=== PATIENT | male | born 1965 | race Caucasian/White ===

== ENCOUNTER 2020-07-24 18:04 | Inpatient (IN) | payer OTHER, SELFPAY ==
[2020-07-24] VITALS (7 sets, daily range): BP systolic 129–160; BP diastolic 76–105; PULSE 79–95; RESP 16–24; TEMP 36.3–36.8; O2SAT 95–97; BMI 30.3; BMI 29.7; BMI 29.8
--- NOTE | 2020-07-24 18:18 | ED.VIS.GEN ---
History of Present Illness Chief Complaint: Abn Labs Informant: Patient Onset: Today Current Severity: - - No symptoms Narrative: Patient is a 55-year-old male with medical history significant for smoking, hypertension, and heart catheterization with stent in 2006 presents to the emergency department at referral from outpatient stress testing lab. The patient states that in February, he was getting out of his truck. He states that he was getting bent over to lift something. He states he began to have some chest pain. He did have heart attack in the past and states this felt different. He was following up with his primary care and discussed this with him. He was scheduled for an outpatient stress test which was done today. He states is not had chest pain, shortness of breath, exertional dyspnea, nausea, or any other symptoms. He was called after his stress and told that it was abnormal and that he should seek care. 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 He states he used to follow with someone in [place], but has not seen them in years. He has been compliant with his medical therapy. Prior similar symptoms: No Recent Illness/Hospitalization: No Past Medical History - Allergies and Home Meds Allergies/Adverse Reactions: Allergies No Known Allergies Allergy (Verified 08/19/15 10:16) Primary Care Physician: Care Physician,No Primary [Primary Care Provider] - Prior records reviewed: Yes Past Medical History: - - Hypertension, coronary vascular disease Surgical History: angioplasty Smoking Status: Current every day smoker Review of Systems General: Denies: Chills, Fever, Sweats Eyes: Denies: Visual changes - bilaterally, Diplopia ENT: Denies: Rhinorrhea, Sore throat Cardiovascular: Denies: Chest pain, Palpitations Respiratory: Denies: Dyspnea, Cough, Dyspnea on exertion Gastrointestinal: Denies: Abdominal pain, Nausea, Vomiting, Diarrhea, Melena, Hematochezia Genitourinary: Denies: Dysuria, Hematuria, Frequency Musculoskeletal: Denies: Back pain, Extremity Pain Skin: Denies: Rash, Wounds Neurological: Denies: Headache, Weakness, Numbness Physical Exam Vital Signs/Narrative: Vital Signs Temp Pulse Resp BP Pulse Ox 07/24/20 18:05 97.4 F L 87 18 160/104 H 96 Inital Vital Signs reviewed: Yes General: Well nourished, Well developed, No Acute Distress Head: Normocephalic, Atraumatic Eyes: Perrl, EOMI ENT: Moist mucous membranes, No rhinorrhea Neck: Supple, Nontender Cardiovascular: Regular rate, Regular rhythm, No murmurs Respiratory: No distress, CTA bilaterally, Chest nontender Abdomen: Soft, Nontender, Nondistended, Normal bowel sounds Back: Nontender, Normal Inspection Extremities: Nontender, No edema Skin: Normal color, No rash Neurological: Alert, Oriented x3, Cranial nerves II-XII grossly intact, Normal Strength, Normal Sensation Psychological: Normal affect, Normal Mood Diagnostic/Tx/Re-eval Clinical Impression(s) from Imaging Studies Chest X-Ray 07/24/20 19:20 IMPRESSION: Right paraspinal rounded opacity which may reflect an underlying osteophyte, consider PA and lateral images were further evaluation. Electronically Signed: Michelle Pedroza MD at 19:45 EST Tel , Service support , Abnormal Lab Results 07/24/20 07/24/20 07/24/20 19:15 19:15 19:15 WBC 8.5 RBC 5.17 Hgb 16.3 Hct 48.8 MCV 94.4 H MCH 31.5 MCHC 33.4 RDW Std Deviation 44.2 H RDW Coeff of Gustavo 12.8 Plt Count 240 MPV 9.2 Immature Gran % (Auto) 0.400 Neut % (Auto) 65.9 Lymph % (Auto) 23.5 [place] % (Auto) 8.6 Eos % (Auto) 0.9 Baso % (Auto) 0.7 Absolute Neuts (auto) 5.6 Absolute Lymphs (auto) 1.99 Nucleated RBC % 0 PT 12.8 INR 1.0 APTT 26.7 Sodium 139 Potassium 4.0 Chloride 107 Carbon Dioxide 27.0 Anion Gap 5 BUN 11 Creatinine 0.79 Estim Creat Clear Calc 110.37 Est GFR (MDRD) Af Amer 132 Est GFR (MDRD) Non-Af 109 BUN/Creatinine Ratio 13.9 Glucose 114 H Calcium 9.6 Troponin I 0.033 - Rhythm Strip Rhythm Strip: Sinus Rhythm Rate: 80 Ectopy: None - EKG Initial EKG Interpretation: Sinus Rhythm, No Acute Injury Pattern Prior: No Prior - Medical Decision Making I was able to review the patient's stress test done today. It does demonstrate area concerning for ischemia in the left circumflex distribution. However, the patient has not really had any symptoms. I did spend time discussing his case with Dr. Delong, on-call for cardiology. He did agree that the patient could go either way with either close outpatient follow-up or admission for heart catheterization tomorrow. After long discussion with the patient, he wants to stay for catheterization. I do feel that this is reasonable, especially given his history of heart disease. EKG was obtained. It was sinus rhythm. There was no acute ischemic change that was documented. Metabolic work-up was pursued and was unremarkable. Chest x-ray was obtained. This was reviewed by both myself and the balancing machine set up worker. There was a questionable opacity in the right lung which may be shadowing. The patient has had no cough or shortness of breath. He does have smoking and will likely need to be followed up on. The patient was actually seen in consultation by Dr. Delong in the emergency department. He was started on Plavix. At this point, he will be admitted with plan for cardiac catheterization. Impression 1. Chest pain with history of coronary vascular disease 2. Abnormal stress test ED Disposition - Plan for ED Patient: Referrals: Care Physician,No Primary [Primary Care Provider] -
--- NOTE | 2020-07-24 18:35 | EKG12_ITS ---
Test Reason : DYSRHYTHMIA Blood Pressure : / mmHG Vent. Rate : 086 BPM Atrial Rate : 086 BPM P-R Int : 130 ms QRS Dur : 096 ms QT Int : 374 ms P-R-T Axes : 073 062 041 degrees QTc Int : 447 ms Normal sinus rhythm Normal ECG Confirmed by VANNESA MAYORGA, CARRIE ([id number]), editor in chief MARY DANIELLE ([id number]) on 07/28/2020 9:51:04 AM Referred By: RIVERA Confirmed By:CARRIE GRANADO MD
--- NOTE | 2020-07-24 19:11 | ED.RN ---
pt just returned to room after talking with significant other outside ED.
--- NOTE | 2020-07-24 19:20 | RAD_ITS ---
STUDY: X-RAY CHEST REASON FOR EXAM: Male, 55 years old. Abnormal stress test today and chest pain TECHNIQUE: 2 frontal images of the chest were obtained. COMPARISON: None. FINDINGS: The lungs are clear and expanded. There is no demonstrated pleural abnormality. Normal size heart. Normal mediastinum and boom. Normal visualized pulmonary arteries. Normal visualized aortic arch and descending thoracic aorta. There is a 3.7 cm rounded calcified focus within the mid/lower right paraspinal region. Normal visualized ribs, clavicles, and shoulders. There is no demonstrated abnormality of the visualized soft tissue structures of the upper abdomen. RAD/Chest 1 View (Portable) IMPRESSION: Right paraspinal rounded opacity which may reflect an underlying osteophyte, consider PA and lateral images were further evaluation. Electronically Signed: Michelle Pedroza MD at 19:45 EST Tel , Service support ,
[2020-07-24] MEDS: Aspirin 81 MG TAB.CHEW 324 MG PO (19:21)
[2020-07-24 19:45] LABS: Absolute Lymphocyte Count 1.99 X10^3/uL (0.83-4.51); Absolute Neutrophil Count 5.6 X10^3/uL (2.0-7.7); Basophil# 0.06 X10^3/uL; Basophil% 0.7 % (0-1); Eosinophil# 0.08 X10^3/uL; Eosinophils% 0.9 % (0-5); Hematocrit 48.8 % (40-54); Hemoglobin 16.3 g/dL (13.0-16.5); Lymphocyte # 1.99 X10^3/ul (4.0); Lymphocyte % 23.5 % (19-41); Mean Corp Hgb Conc 33.4 g/dL (32-36); Mean Corpuscular Hgb 31.5 pg (27.0-32.0); Mean Corpuscular Volume 94.4 fL (80-94); Mean Platelet Vol. 9.2 fl (6.2-12.0); Monocyte# 0.73 X10^3/uL; Monocyte% 8.6 % (0-10); NRBC Flagged by Analyzer 0 % (0-5); Neutrophil # 5.57 X10^3/uL (2.7-7.7); Neutrophil % 65.9 % (47-70); Platelet Count 240 K/mm3 (150-450); RBC Distribution Width CV 12.8 % (11.6-14.6); RBC Distribution Width SD 44.2 fl (35.1-43.9); Red Blood Count 5.17 M/mm3 (4.6-6.2); White Blood Count 8.5 K/mm3 (4.4-11.0)
[2020-07-24 19:51] LABS: Prothrombin Time (Protime)PT. 12.8 SECONDS (11.7-14.9)
[2020-07-24 19:52] LABS: Partial Thromboplast Time 26.7 Seconds (24.1-36.2)
[2020-07-24 20:07] LABS: Anion Gap 5 (5-15); BUN 11 mg/dL (7-18); BUN/Creat Ratio 13.9 RATIO (10-20); Calcium,Total 9.6 mg/dL (8.5-10.1); Chloride 107 mmol/L (98-107); Creatinine, Serum 0.79 mg/dL (0.70-1.30); EST Glomerular Filtration Rate 109 mL/min (>60); Est Glom Filt Rate - Afr Amer 132 mL/min (>60); Estimated Creatinine Clearance 110.37 ml/min; Glucose 114 mg/dL (74-106); Sodium Level 139 mmol/L (136-145)
--- NOTE | 2020-07-24 20:09 | CON.PCM_ITS ---
Problem List (1) Abnormal stress test Status: Acute (2) CAD (coronary artery disease) Status: Chronic Qualifiers: Coronary Disease-Associated Artery/Lesion type: [place] artery [place] vs. transplanted heart: [place] heart (3) S/P PTCA (percutaneous transluminal coronary angioplasty) Status: Chronic (4) HLD (hyperlipidemia) Status: Chronic Qualifiers: Hyperlipidemia type: unspecified Qualified Code(s): E78.5 - Hyperlipidemia, unspecified (5) HTN (hypertension) Status: Chronic Reason for Consult Date of Consultation: 07/24/20 History of Present Illness: The patient is a 55 year old white male with a past medical history of CAD, status post ND, status post PCI, hyperlipidemia, hypertension who was referred for evaluation of an abnormal stress test. He states he was previously cared for at [facility]. He notes several years ago he presented with what he referred to as a massive heart attack . He states he was monitored overnight. The following day he underwent diagnostic cardiac catheterization and subsequent PTCA/stents-details unknown. He states he remained in the hospital for a total of 3 days and was released home. He did follow with [facility] cardiology for period of time. However he states he has not been evaluated by founder and chief executive officer now for some time. He was visiting his PCP for his routine checkup. He informed his PCP that approximately February 2020 he experienced some neck discomfort and felt warm . He does not recall any additional symptoms at that time. He states his PCP requested that he undergo an exercise tolerance test/imaging study. This was performed today at [facility] in the way of a pharmacologic rest test. According to the report obtained by the [facility] emergency department staff this was considered abnormal with concerns of stress-induced myocardial ischemia in the LCx distribution. He states he was contacted by his physician and told to report to the nearest emergency department for additional evaluation and care. Thus he presented to [facility]. The present time he states he is resting comfortably. He recalls his neck discomfort and warm sensation. He notes during his test today he may have felt a warm sensation in his neck as well. He does not recall radiation of any further discomforts nor does he recall having any associated nausea, emesis, or diaphoresis. There has been no report of orthopnea or PND or peripheral pitting edema. There is been no near syncope or syncope. He states he has been on medication which have included aspirin, a beta-sonal, an KEYSHA inhibitor, and a statin. He was on clopidogrel/Plavix in the past but it was subsequently discontinued. He does admit that he continues to smoke cigarettes. He states his tells him he is chronically short of breath. [] Past Medical History Allergies/Adverse Reactions: Allergies No Known Allergies Allergy (Verified 08/19/15 10:16) Home Medications: Ambulatory Orders Medication Instructions Recorded Lisinopril [Zestril] 10 mg PO DAILY 08/19/15 Metoprolol Tartrate [Lopressor 25 mg PO DAILY 08/19/15 (Beta Sonal)] Aspirin [Aspirin, Baby] 81 mg PO DAILY@0800 07/24/20 Prilosec 07/24/20 Past Medical History (Chronic Problems): Chronic Problems CAD (coronary artery disease) (Chronic) S/P PTCA (percutaneous transluminal coronary angioplasty) (Chronic) HLD (hyperlipidemia) (Chronic) HTN (hypertension) (Chronic) Surgical History: angioplasty Lives: Spouse/ Significant Other Smoking Status: Current every day smoker Alcohol: None Drugs: None Review of Systems - Review of Systems General: Denies: Fever, Night Sweats, Fatigue Cardiovascular: Reports: Chest Discomfort, Shortness of Breath. Denies: Orthopnea, PND, Peripheral Edema, Palpitations, Lightheadedness, Dizziness, Near Syncope, Syncope Respiratory: Reports: Shortness of Breath. Denies: Cough, Sputum Production, Hemoptysis Gastrointestinal: Denies: Hematemesis, Hematochezia, Melena Genitourinary: Denies: Dysuria, Hematuria Skin: Denies: Rash Subjectve: This is a 55-year-old white male appears to be resting comfortably at the moment in no acute distress. Objective: Vital Signs Temp Pulse Resp BP Pulse Ox 97.4 F L 87 24 H 160/104 H 96 07/24/20 18:05 07/24/20 19:21 07/24/20 19:21 07/24/20 18:07/24/20 19:21 Oxygen Delivery Method Room Air Weight: 211 lb 3.245 oz Body Mass Index (BMI) 30.3 General: Awake, Alert, Oriented x 3, Cooperative, No Acute Distress HEENT: Atraumatic, Normocephalic, PERRL, EOMI, Sclera Non Icteric Neck: Supple, Good ROM, No JVD Lungs: Clear to auscultation Cardiovascular: Regular Rhythm, Normal S1, Normal S2, Positive S4 Vascular: No Carotid Bruits Abdomen: Bowel Sounds Present, Soft, Non Tender Extremities: No edema Neurological: No Focal Motor or Sensory Deficit Psych/Mental Status: Appropriate 07/24/20 19:15: WBC 8.5, RBC 5.17, Hgb 16.3, Hct 48.8, MCV 94.4 H, MCH 31.5, MCHC 33.4, Plt Count 240, MPV 9.2, Immature Gran % (Auto) 0.400, Neut % (Auto) 65.9, Lymph % (Auto) 23.5, [place] % (Auto) 8.6, Eos % (Auto) 0.9, Baso % (Auto) 0.7, Absolute Neuts (auto) 5.6, Nucleated RBC % 0 07/24/20 19:15: PT 12.8, INR 1.0, APTT 26.7 07/24/20 19:15: Sodium 139, Potassium 4.0, Chloride 107, Carbon Dioxide 27.0, Anion Gap 5, BUN 11, Creatinine 0.79, Est GFR (MDRD) Af Amer 132, Est GFR (MDRD) Non-Af 109, BUN/Creatinine Ratio 13.9, Glucose 114 H, Calcium 9.6, Troponin I 0.033 Rhythm: Sinus rhythm EKG: Sinus rhythm CXR: Preliminary evaluation: No acute cardiopulmonary disease process appreciate d: Please see official report Assessment/Plan 1. Abnormal stress test The patient was contacted with an abnormal stress test and asked to report to the nearest hospital for further evaluation. His stress test has raised concerns of underlying progression of CAD and myocardial ischemia. At the moment patient appears to be resting comfortably. He has elected to remain in the hospital for further cardiovascular evaluation. He is having laboratory studies performed. He has had an ECG performed. He has had a chest x-ray performed. He will continue medical management as deemed appropriate. A discussion was held with him with respect to further evaluation with diagnostic cardiac catheterization. The procedure and risks were discussed with him. He was agreeable to this approach. 2. CAD status post PCI The details of the patient's CAD/PCI are unknown at this time. At the moment he will continue to be monitored. He will continue medical therapy. He will be continuing plans for further evaluation with diagnostic cardiac catheterization. In the interim attempt will be made to obtain his cardiovascular records from [facility]. 3. Hyperlipidemia His lipids can be checked. He will continue lipid-lowering therapy. 4. Hypertension He should continue medical therapy as deemed appropriate. Comment: The patient's case has been discussed with the patient and Dr. Sutherland of the [facility] emergency department staff. This note was generated using a voice recognition system and there may be incorrect words, spelling or punctuation that were not noted when reviewing the office note prior to saving.
--- NOTE | 2020-07-24 20:48 | PCM.HP.STD ---
Problem List (1) Abnormal stress test Status: Acute (2) CAD (coronary artery disease) Status: Chronic Qualifiers: Coronary Disease-Associated Artery/Lesion type: [place] artery [place] vs. transplanted heart: [place] heart (3) HLD (hyperlipidemia) Status: Chronic Qualifiers: Hyperlipidemia type: unspecified Qualified Code(s): E78.5 - Hyperlipidemia, unspecified (4) HTN (hypertension) Status: Chronic Qualifiers: Hypertension type: essential hypertension Qualified Code(s): I10 - Essential (primary) hypertension History of Present Illness Date of Admission: 07/24/20 Chief Complaint: Chest pain, abnormal stress test The patient is a 55 year old M with past medical history of CAD status post stent in 2006, who had followed up with his primary care doctor in February 2020 and had complained of some chest pain. At that time, he had a substernal/upper sternum chest discomfort associated with sweatiness, diaphoresis, dizziness. This lasted for about 10 minutes. He had a recurrence of those symptoms around [place] was working. This also lasted for a few minutes. Patient had followed up for a stress test which was done today in the [facility]. The findings were a basal to mid lateral wall hypokinesis, suggestive of ischemia in the left circumflex territory. He was called with results of the abnormal stress test and told to see a tie inspector. His previous tie inspector was in [place] but had moved. He lives close by and decided to get his care in [facility]. Patient continues to smoke. His vitals in the ED showed temperature of 97.4F, heart rate 87, blood pressure 160/104, respiratory rate was 18, SPO2 is 96% on room air. Patient admits to taking all his medications today. His admitting blood work was unremarkable. His admitting chest x-ray was unremarkable. Past Medical History Past Medical History (Chronic Problems): Chronic Problems CAD (coronary artery disease) (Chronic) S/P PTCA (percutaneous transluminal coronary angioplasty) (Chronic) HLD (hyperlipidemia) (Chronic) HTN (hypertension) (Chronic) Allergies No Known Allergies Allergy (Verified 08/19/15 10:16) Home Medications: Ambulatory Orders Medication Instructions Recorded Lisinopril [Zestril] 5 mg PO DAILY 08/19/15 Metoprolol Tartrate [Lopressor 25 mg PO DAILY 08/19/15 (Beta Sonal)] Aspirin [Aspirin, Baby] 81 mg PO DAILY@0800 07/24/20 Betamethasone/Propylene Glyc 15 mg TOPICAL PRN PRN 07/24/20 [Betamethasone Dp Aug 0.05% Oin] Prilosec 10 mg PO DAILY 07/24/20 Rosuvastatin Calcium 20 mg PO DAILY 07/24/20 Surgical History: angioplasty, - - Status post removal from his knee, wisdom teeth removal Lives: Spouse/ Significant Other Smoking Status: Current every day smoker Alcohol: Heavy - Drinks about 8 beers a day or one half bottles of wine a day Drugs: None Review of Systems Constitutional: Denies: Anorexia, Chills, Fever, Malaise, Weakness, Weight Change Eyes: Denies: Blurred vision, Cataracts, Conjunctivae Inflammation, Pain, Redness HEENT: Denies: Difficulty Hearing, Difficulty Swallowing, Head Aches, Hearing Changes, Sinus Congestion, Sinus Drainage Cardiovascular: Reports: Chest Pain, Chest Pressure, Chest Tightness. Denies: Orthopnea, Palpitations, Paroxysmal Noc. Dyspnea Respiratory: Denies: Cough, Hemoptysis, Shortness of breath at rest, Shortness of breath upon exertion, Sputum production Gastrointestinal: Denies: Abdominal Pain, Hematemesis, Hematochezia, Nausea, Vomiting Genitourinary: Denies: Dysuria, Frequency, Incontinence Musculoskeletal: Denies: Joint Pain, Joint stiffness, Joint swelling, Joint Tenderness Skin: Denies: Pruritis, Rash, Wounds Neurological: Denies: Difficulty swallowing, Focal weakness, Numbness, Tingling Psychiatric: Denies: Anxiety, Depression, Homicidal Ideations, Suicidal Ideations Hematologic/ Lymphatic: Denies: Easy Bruising, Easy Bleeding VTE Information - Inpt Only VTE Present on Admission: No VTE Pharm Prophylaxis ordered?: Yes Patient Problems: Active and Suspected Problems Abnormal stress test (Acute) - Physical Exam Vitals/I&O's: Vital Signs Temp Pulse Resp BP Pulse Ox 97.4 F L 87 24 H 160/104 H 96 07/24/20 18:05 07/24/20 19:21 07/24/20 19:21 07/24/20 18:05 07/24/20 19:21 Oxygen Delivery Method Room Air Weight: 95.8 kg Body Mass Index (BMI) 30.3 General: Alert, Oriented x3, Cooperative, No apparent distress HEENT: Atraumatic, PERRLA, EOMI, Normocephalic Oral: Moist Mucosa Neck: Supple Lungs: Clear to auscultation, Normal air movement Cardiovascular: Regular rate, Regular Rhythm, Normal S1, Normal S2, No murmurs Abdomen: Bowel Sounds Present, Soft, Non Tender, Non-Distended, No Hepato-splenomegaly Extremities: No edema Skin: No rashes Musculoskeletal: No Tenderness to Palpation of Joints or Extremities Lymphatic: No Cervical, Supraclavicular, or Inguinal Adenopathy Neurological: Cranial nerves II-XII grossly intact, Neuro grossly intact Psych/Mental Status: Normal Affect, Appropriate Laboratory Results 07/24/20 19:15: WBC 8.5, RBC 5.17, Hgb 16.3, Hct 48.8, MCV 94.4 H, MCH 31.5, MCHC 33.4, RDW Std Deviation 44.2 H, RDW Coeff of Gustavo 12.8, Plt Count 240, MPV 9.2, Immature Gran % (Auto) 0.400, Neut % (Auto) 65.9, Lymph % (Auto) 23.5, [place] % (Auto) 8.6, Eos % (Auto) 0.9, Baso % (Auto) 0.7, Absolute Neuts (auto) 5.6, Absolute Lymphs (auto) 1.99, Nucleated RBC % 0 07/24/20 19:15: PT 12.8, INR 1.0, APTT 26.7 07/24/20 19:15: Sodium 139, Potassium 4.0, Chloride 107, Carbon Dioxide 27.0, Anion Gap 5, BUN 11, Creatinine 0.79, Estim Creat Clear Calc 110.37, Est GFR (MDRD) Af Amer 132, Est GFR (MDRD) Non-Af 109, BUN/Creatinine Ratio 13.9, Glucose 114 H, Calcium 9.6, Troponin I 0.033 Current Medications Clopidogrel Bisulfate (Clopidogrel Bisulfate 75 Mg Tablet) 75 mg PO DAILY [facility] Sodium Chloride () 1,000 mls @ 0 mls/hr IV .Q0M [facility] Assessment/Plan All Active Problems Abnormal stress test (Acute) 1. Chest pain, abnormal stress test in a patient with history of CAD status post stent EKG did not show acute ST-T changes. Troponins are negative. Stress test done today in [place] showed mid lateral wall hypokinesis suggesting ischemia in the left circumflex territory Cardiology consulted from the ED, patient going for cardiac cath in a.m. -patient already loaded with Plavix and aspirin Continue on aspirin, statin, metoprolol Check lipid profile, HgbA1c in a.m. 2. Hypertension, uncontrolled, patient admits to taking all his medications on the day of admission Continue on metoprolol. Hold lisinopril in anticipation of use of contrast during cardiac cath Hydralazine as needed 3. Nicotine dependence, advised to quit, continue replacement 4. Alcohol use disorder, patient denies going into DTs Will monitor on the CIWA withdrawal scale 5. DVT prophylaxis with heparin subcu Inpatient E&M: 18301 Init Hosp L3
[2020-07-24] MEDS: Clopidogrel Bisulfate 300 MG Tablet PO (20:58)
[2020-07-24 22:12] LABS: AST(SGOT) 28 U/L (15-37); Alanine Aminotransfer ALT/SGPT 68 U/L (16-61); Albumin, Serum 4.5 g/dL (3.2-5.0); Alkaline Phosphatase 68 U/L (45-117); Bilirubin, Direct 0.12 mg/dL (0.00-0.30); Globulin 3.7 g/dL (2.2-4.2); Protein, Total 8.2 g/dL (6.4-8.2)
[2020-07-24] MEDS: Heparin Injection (Vial) 5,000 UNIT/ML VIAL 5000 UNIT SC (22:55)
--- NOTE | 2020-07-24 23:59 | PCS.PANDOC ---
PANDEMIC DOCUMENTATION INITIATED: Date: 07/24/20 Time: 21:35
[2020-07-25] VITALS (16 sets, daily range): BP systolic 125–146; BP diastolic 75–93; PULSE 67–91; RESP 16–18; TEMP 36.6–37; O2SAT 93–96
[2020-07-25 00:40] LABS: Hemoglobin A1c 5.9 % (3.8-5.6)
--- NOTE | 2020-07-25 05:55 | EKG12_ITS ---
Test Reason : AM EKG Blood Pressure : / mmHG Vent. Rate : 069 BPM Atrial Rate : 069 BPM P-R Int : 124 ms QRS Dur : 096 ms QT Int : 430 ms P-R-T Axes : 072 055 052 degrees QTc Int : 460 ms Normal sinus rhythm Nonspecific T wave abnormality Prolonged QT Abnormal ECG Confirmed by VANNESA MAYORGA, ACRRIE ([id number]), editor managing director MARY DANIELLE ([id number]) on 07/28/2020 9:54:38 AM Referred By: LEV Confirmed By:CARRIE GRANADO MD
--- NOTE | 2020-07-25 05:55 | ECHOCS_ITS ---
Reason For Study: CAD/ASHD Procedure This was a 2D Doppler, Color Flow transthoracic echocardiogram. Technically difficult study, contrast injection performed. The study was technically difficult. Contrast injection was performed. Exam performed portable in patient room. Left Ventricle Normal LV size. Mild segmental systolic dysfunction (see wall motion). The estimated ejection fraction is 45 %. Transmitral doppler flow suggestive of impaired relaxation of left ventricle. Lateral-Basal: Hypokinetic. Mid-Anterior : Hypokinetic. Mid-Lateral : Hypokinetic. Mid-Posterior: Hypokinetic. Mid-anteroseptal : Hypokinetic. Anterior [place] : Hypokinetic. Lateral [place] : Hypokinetic. Right Ventricle Normal RV size. Normal systolic function. Atria The left atrium is mildly enlarged. Normal right atrium. No doppler evidence for ASD. Mitral Valve There is no mitral annular calcification. Mild focal mitral valve calcification of the anterior leaflet. Trivial mitral valve insufficiency. Tricuspid Valve Normal tricuspid valve. Trivial tricuspid valve insufficiency. Unable to estimate RV systolic pressure/pulmonary artery pressure due to technically difficult study. Aortic Valve Trisinus/trileaflet aortic valve. Normal aortic valve. Pulmonic Valve The pulmonic valve is not well visualized. Great Vessels The aortic root is not well visualized. Pericardium/Pleural No pericardial effusion. Medication Diluted definity 3ml given slow IV push to enhance endocardial definition. MMode/2D Measurements & Calculations LVIDd: 5.4 cm IVSd: 1.4 cm LA dimension: 4.1 cm LVIDs: 3.9 cm LVPWd: 1.2 cm FS: 27.3 % LAV(MOD-bp): 64.3 ml LA A4 area: 20.5 cm2 RA A4 area: 19.2 cm2 LAV(MOD-bp) Indexed: 30.3 ml/m2 LAV(MOD-sp2): 67.2 ml LAV(MOD-sp4): 58.4 ml Time Measurements MV dec time: 0.27 sec Doppler Measurements & Calculations MV E max matthew: 52.5 cm/sec Lat Peak E' Matthew: 10.4 cm/sec Med Peak E' Matthew: 11.7 cm/sec MV A max matthew: 83.8 cm/sec E/E' lat: 5.0 E/E' med: 4.5 MV E/A: 0.63 MV V2 max: 73.3 cm/sec MV P1/2t max matthew: 60.8 cm/sec Ao V2 max: 114.6 cm/sec MV max P.2 mmHg MV P1/2t: 86.4 msec Ao max P.3 mmHg MV V2 mean: 36.7 cm/sec MV dec slope: 206.1 cm/sec2 MV mean P.63 mmHg MV V2 VTI: 22.7 cm MVA(P1/2t): 2.5 cm2 LV V1 max: 99.7 cm/sec PA V2 max: 86.7 cm/sec LV V1 max P.0 mmHg Interpretation Summary The study was technically difficult. Contrast injection was performed. Mild segmental systolic dysfunction (see wall motion). The estimated ejection fraction is 45 %. The left atrium is mildly enlarged. Mild focal mitral valve calcification of the anterior leaflet. Trivial mitral valve insufficiency. Trivial tricuspid valve insufficiency. Unable to estimate RV systolic pressure/pulmonary artery pressure due to technically difficult study. Transmitral doppler flow suggestive of impaired relaxation of left ventricle Ordering Physician: Tony Delong Referring Physician: VIOLET PCP Performed By: Babar Callahan RCS
[2020-07-25] MEDS: Clopidogrel Bisulfate 75 MG Tablet PO (06:26)
[2020-07-25] MEDS: Aspirin 81 MG TAB.CHEW PO (06:26)
[2020-07-25] MEDS: Metoprolol Tartrate 25 MG Tablet PO (06:26)
[2020-07-25 06:35] LABS: Absolute Lymphocyte Count 2.07 X10^3/uL (0.83-4.51); Absolute Neutrophil Count 2.8 X10^3/uL (2.0-7.7); Basophil# 0.06 X10^3/uL; Eosinophil# 0.27 X10^3/uL; Eosinophils% 4.6 % (0-5); Hematocrit 45.8 % (40-54); Hemoglobin 15.1 g/dL (13.0-16.5); Lymphocyte # 2.07 X10^3/ul (4.0); Lymphocyte % 35.6 % (19-41); Mean Corpuscular Hgb 31.1 pg (27.0-32.0); Mean Corpuscular Volume 94.4 fL (80-94); Monocyte# 0.62 X10^3/uL; Monocyte% 10.7 % (0-10); NRBC Flagged by Analyzer 0 % (0-5); Neutrophil # 2.79 X10^3/uL (2.7-7.7); Neutrophil % 47.9 % (47-70); Platelet Count 189 K/mm3 (150-450); RBC Distribution Width CV 12.7 % (11.6-14.6); RBC Distribution Width SD 44.6 fl (35.1-43.9); Red Blood Count 4.85 M/mm3 (4.6-6.2); White Blood Count 5.8 K/mm3 (4.4-11.0)
[2020-07-25 07:11] LABS: AST(SGOT) 23 U/L (15-37); Alanine Aminotransfer ALT/SGPT 59 U/L (16-61); Albumin, Serum 3.9 g/dL (3.2-5.0); Alkaline Phosphatase 62 U/L (45-117); Anion Gap 4 (5-15); BUN 14 mg/dL (7-18); BUN/Creat Ratio 20.7 RATIO (10-20); Bilirubin, Direct 0.15 mg/dL (0.00-0.30); Calcium,Total 9.1 mg/dL (8.5-10.1); Chloride 109 mmol/L (98-107); Cholesterol 215 mg/dL (200); Creatinine, Serum 0.68 mg/dL (0.70-1.30); EST Glomerular Filtration Rate 130 mL/min (>60); Est Glom Filt Rate - Afr Amer 157 mL/min (>60); Estimated Creatinine Clearance 128.23 ml/min; Globulin 3.2 g/dL (2.2-4.2); Glucose 118 mg/dL (74-106); High Density Lipoprotein 44 mg/dL; Potassium 4.1 mmol/L (3.5-5.1); Protein, Total 7.1 g/dL (6.4-8.2); Sodium Level 140 mmol/L (136-145); Triglycerides 191 mg/dL; Very Low Density Lipoprotein 38 mg/dL (5-40)
--- NOTE | 2020-07-25 08:22 | PN.CARD_ITS ---
Subjectve: The patient is awake and alert. He has had no new acute symptoms. Objective: Vital Signs Temp Pulse Resp BP Pulse Ox 97.8 F 91 18 138/79 H 96 07/25/20 06:24 07/25/20 07:19 07/25/20 06:24 07/25/20 06:26 07/25/20 06:24 Oxygen Delivery Method Room Air Weight: 207 lb 3.752 oz Body Mass Index (BMI) 29.7 Intake and Output for Last 24 Hours 07/23/20 07/24/20 07/25/20 23:59 23:59 23:59 Intake Total 240 / 240 0 / 0 Balance 240 / 240 0 / 0 General: Awake, Alert, Oriented x 3, Cooperative, No Acute Distress HEENT: Atraumatic, Normocephalic, PERRL, EOMI, Sclera Non Icteric Neck: Supple, Good ROM, No JVD Lungs: Clear to auscultation Cardiovascular: Regular Rhythm, Normal S1, Normal S2, Positive S4 Vascular: Normal Radial Pulses Abdomen: Bowel Sounds Present, Soft Extremities: No edema Neurological: No Focal Motor or Sensory Deficit Psych/Mental Status: Appropriate 07/24/20 19:15: WBC 8.5, RBC 5.17, Hgb 16.3, Hct 48.8, MCV 94.4 H, MCH 31.5, MCHC 33.4, Plt Count 240, MPV 9.2, Immature Gran % (Auto) 0.400, Neut % (Auto) 65.9, Lymph % (Auto) 23.5, [place] % (Auto) 8.6, Eos % (Auto) 0.9, Baso % (Auto) 0.7, Absolute Neuts (auto) 5.6, Nucleated RBC % 0 07/24/20 19:15: PT 12.8, INR 1.0, APTT 26.7 07/24/20 19:15: Sodium 139, Potassium 4.0, Chloride 107, Carbon Dioxide 27.0, Anion Gap 5, BUN 11, Creatinine 0.79, Est GFR (MDRD) Af Amer 132, Est GFR (MDRD) Non-Af 109, BUN/Creatinine Ratio 13.9, Glucose 114 H, Calcium 9.6, Troponin I 0.033 07/24/20 19:15: Total Bilirubin 0.50, Direct Bilirubin 0.12 07/24/20 19:15: Hemoglobin A1c 5.9 H 07/25/20 00:44: Troponin I 0.032 07/25/20 03:40: Troponin I 0.016 07/25/20 06:25: Sodium 140, Potassium 4.1, Chloride 109 H, Carbon Dioxide 27.0, Anion Gap 4 L, BUN 14, Creatinine 0.68 L, Est GFR (MDRD) Af Amer 157, Est GFR (MDRD) Non-Af 130, BUN/Creatinine Ratio 20.7 H, Glucose 118 H, Calcium 9.1, Total Bilirubin 0.70, Direct Bilirubin 0.15, Triglycerides 191, Cholesterol 215 H, LDL Cholesterol 133 H, VLDL Cholesterol 38, HDL Cholesterol 44 07/25/20 06:25: WBC 5.8, RBC 4.85, Hgb 15.1, Hct 45.8, MCV 94.4 H, MCH 31.1, MCHC 33.0, Plt Count 189, MPV 9.0, Immature Gran % (Auto) 0.200, Neut % (Auto) 47.9, Lymph % (Auto) 35.6, [place] % (Auto) 10.7 H, Eos % (Auto) 4.6, Baso % (Auto) 1.0, Absolute Neuts (auto) 2.8, Nucleated RBC % 0 07/25/20 06:25: Troponin I 0.021 Rhythm: Sinus rhythm EKG: Sinus rhythm Medical Necessity - Tobacco Use Smoking Status: Current every day smoker Tobacco Use: Cigarettes Assessment/Plan 1. Abnormal stress test The patient was contacted with an abnormal stress test and asked to report to the nearest hospital for further evaluation. His stress test which appears to been a dobutamine stress echocardiogram, has raised concerns of underlying progression of CAD and myocardial ischemia in the according to the report comments regarding the anterolateral or lateral distribution. At the moment patient appears to be resting comfortably. He is having laboratory studies performed. His troponin I levels have been technically negative. He has had an ECG performed. He has had a chest x-ray performed. He will continue medical management as deemed appropriate. As noted before he is going to proceed with further evaluation with diagnostic cardiac catheterization. 2. CAD status post PCI The details of the patient's CAD/PCI are unknown at this time. At the moment he will continue to be monitored. He will continue medical therapy. He will be continuing plans for further evaluation with diagnostic cardiac catheterization. Additional cardiovascular records from [facility] are still pending. 3. Hyperlipidemia His lipids can be checked. He will continue lipid-lowering therapy. 4. Hypertension He should continue medical therapy as deemed appropriate. This note was generated using a voice recognition system and there may be incorrect words, spelling or punctuation that were not noted when reviewing the office note prior to saving. Procedure Criteria Procedure Type: Elective COVID Risk Discussion: The surgeon/proceduralist and patient have discussed in detail the risk of exposure to and/or potential harm posed by the COVID-19 virus with having a surgery/procedure at this time versus the risk of delaying the surgery/procedure. It is not possible to know either the risk of delaying the surgery or procedure or chance of getting an infection with perfect accuracy, but a joint decision was made between the patient and the surgeon/proceduralist to proceed at this time with the scheduled surgery/procedure as indicated on the consent form.
--- NOTE | 2020-07-25 09:31 | CASEMGMT ---
According to the [employer] website([email or web address]), the following are in-network tertiary facilities: [facility], [facility], [facility], and [facility]. Abdoul LAUREN CM
--- NOTE | 2020-07-25 09:42 | CL.D_ITS ---
Patient Name: NICOLE REED Study Date: 07/25/2020 Performing: Tony Delong MD Ht: 70.07 inches 178 cm : 1965 Wt: 207.23 lbs 94 kg Age: 55 Gender: male BSA: 2.12 PROCEDURE(S) PERFORMED [id number]/COR/LV CLINICAL PROFILE AND INDICATIONS Indications: Suspected CAD Heart Failure: None Stress/Imaging Stress Echocardiogram: Yes Result: Positive Intermediate RiskStress Echocardiogram : Positive Intermediate Risk Angina Classification Anginal Classification w/in 2 Weeks: CCS II CAD Presentations: Other: chest / neck pain CONCLUSIONS Normal Left Ventricular End Diastolic Pressure Segmented LV systolic dysfunction- Mild LVEF: by LV gram 50 % [place] Multivessel CAD RECOMMENDATIONS Risk factor modification Medical therapy Surgery consult for coronary revascularization DESCRIPTION OF PROCEDURE The patient arrived to the procedure lab. The risks and benefits of the procedure as well as a full d escription of our services here and current unavailability of surgical backup were fully explained to the patient and/or their significant other prior to the catheterization. The Timeout was completed, verifying the correct patient and procedure. The patient's procedural site was prepped and draped in the usual fashion. Local anesthetic was given subcutaneously to right radial region with Lidocaine 2% . Using a modified Seldinger technique, arterial access was obtained via the right radial artery, a 6 Fr sheath was inserted. Left Coronary Artery selective angiography was performed in multiple views u sing a 5 Fr. 4.0 [place] catheter. Right Coronary Artery selective angiography was then performed in mu ltiple views using a 5 Fr. 4.0 [place] catheter. Left Ventriculography was performed in JUNIOR projection using a 5 Fr. Pigtail catheter. LV to AO pullback pressures were then recorded.The arterial sheath was pulled and a TR Band was applied for hemostasis CORONARY ANGIOGRAPHY DOMINANCE: Right Dominant LEFT HEART ASSESSMENT Left Ventricular Ejection Fraction: by LV Gram 50 % Inferior Basal Hypokinesis - Mild. Inferior Mid Hypokinesis - Mild. Apical Hypokinesis - Mild Normal Left Ventricular End Diastolic Pressure LVEDP: 12 mmHg LEFT ANTERIOR DESCENDING ARTERY: PROX LAD: Mild calcification MID LAD: Mild calcification, hazy 75 % Stenosis DIAGONAL 2: Ostial - 90 % Stenosis CIRCUMFLEX ARTERY: PROX CIRC: Mild calcification, subtotally occluded MID CIRC: fills late OM 1: Proximal - fills late OM 2: Proximal - fills late RIGHT CORONARY ARTERY: PROX RCA: is occluded, Previously placed stent is occluded MID RCA: Previously placed stent is occluded DISTAL RCA: Previously placed stent is occluded RT PDA: Proximal - fills from left to right collateral flow COLLATERAL FLOW: Collateral flow from Left to Right AORTIC ROOT: Angiographically normal COMPLICATIONS No Complications PROCEDURE MEDICATIONS Fentanyl 50 mcg IV Versed 1 mg IV Oxygen: 2 L/min via nasal cannula Heparin diluted in 23cc Heparinized saline. Patient given 10cc IA of this solution. 07/25/2020 08:34:4 9 Verapamil 2.5mg, Ntg 100mcgs, 2000 units of Heparin diluted in 23cc Heparinized saline. Patient give n 10cc IA of this solution. 07/25/2020 08:34:49 SUMMARY OF HEMODYNAMIC DATA Time AIR REST ECG 08:13:30 AO 106/68 (84) SA 08:44:01 LV 133/1, 10 08:53:06 LV 127/0, 8 08:53:12 LV 130/3, 12 08:55:26 LV 138/3, 13 08:55:32 LVp 137/2, 18 08:55:38 AOp 139/73 (101) 08:55:43 Signed By Tony Delong MD On 07/25/2020 09:42:03 Signed By Tony Delong MD On 07/25/2020 09:41:00 Tony Delong MD
[2020-07-25] MEDS: 0.9% Normal Saline 1,000 ML 75 ML IV (09:43)
[2020-07-25] MEDS: 0.9% Saline Lock 10 ML Syringe IV (09:43)
[2020-07-25] MEDS: Folic Acid 1 MG Tablet PO (11:46)
[2020-07-25] MEDS: Thiamine Hydrochloride 100 MG Tablet PO (11:46)
[2020-07-25] MEDS: Lisinopril 5 MG Tablet PO (11:46)
--- NOTE | 2020-07-25 12:03 | CASEMGMT ---
XIN LÓPEZ assessment: Face to Face with patient for initial transition planning/care coordination assessment. XIN LÓPEZ introduced self and role at [facility], pt voices understanding and consents to assessment at this time. Pt is sitting up in bed in no distress at this time. Pt is A/Ox4 at this time and answers all questions appropriately at this time. Pt was initially to transfer to [facility] s/p cath for further surgical intervention but then [facility] stated to d/c pt home with f/u with them on 07/28/20. Care providers, pharmacy, and demographics verified/updated at this time. Presentation: Pt had nuclear ST at [facility] today. Cardiology called pt and told him to get to nearest ED Admitting dx: CP, abn ST PCP: Giovanni in [place] Specialists: Pt states no current specialists. Preferred [facility]acy[facility] Insurance: [employer] Prescription Benefit: [employer], pt is unsure of Rx coverage as he states this is new insurance as of 07/18/20 Living Will/HPOA: Pt states does not have LW/HPOA and declines AD info at this time. LNOK: Odilia Ruiz, sig other Living Arrangements: Pt states lives with sig other in 2 story home and states no concerns at home at this time. Pt states is independent with ADL's. Transportation: Pt states drives self and states no transportation concerns at this time. DME/HHC: Pt states no current DME or need for any at this time. Pt states no hx of HHC or SNF in the past. Pt states no concerns with going home at time of discharge. 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 Pt states smokes a pack of cigarettes daily and drinks 6-8beers daily. Pt declines need for alcohol resources at this time. Pt states no further concerns/needs at this time. CM to follow for any further discharge planning/needs. Advised pt to ask for CM if any further questions/concerns/needs arise, voices understanding. Pt Goal: Home Plan: Home w/ f/u at [facility] on tuesday. [place] XIN LÓPEZ
--- NOTE | 2020-07-25 13:28 | NURSING ---
informed that patient will not be transferred to [facility].
--- NOTE | 2020-07-25 13:41 | DCINST_ITS ---
- Discharge Diagnoses Current Active Problems: Current Active and Chronic Problems Abnormal stress test (Acute) CAD (coronary artery disease) (Chronic) S/P PTCA (percutaneous transluminal coronary angioplasty) (Chronic) HLD (hyperlipidemia) (Chronic) HTN (hypertension) (Chronic) You will use the following diet at home:: Cardiac Your food should be the consistency of: Regular Your liquids should be the consistency of: Regular/Thin Discharge Activity: Return to Normal Activity Weight Bearing Status: Weight bearing as tolerated Call your doctor if you observe: Fever of 101 or Higher, Shortness of breath, Fainting spells, Swelling in the ankles Instructions: Understanding Coronary Artery Disease (CAD) Additional Instructions: to follow up with Dr Rooney, cardiothoracic surgeon at [facility] on Tuesday07/28/2019. Allergies/Adverse Reactions: Allergies No Known Allergies Allergy (Verified 08/19/15 10:16) Medications to take at Discharge Metoprolol Tartrate [Lopressor (beta aj)] 25 mg PO DAILY 08/19/15 Aspirin [Aspirin, Baby] 81 mg PO DAILY@0800 07/24/20 Betamethasone/Propylene Glyc [Betamethasone Dp Aug 0.05% Oin] 15 mg TOPICAL PRN PRN 07/24/20 Prilosec 10 mg PO DAILY 07/24/20 Rosuvastatin Calcium 20 mg PO DAILY 07/24/20 Isosorbide Mononitrate [Imdur] 30 mg PO DAILY #30 tab 07/25/20 Lisinopril [Zestril] 5 mg PO DAILY #30 tab 07/25/20 The following prescriptions were given: Isosorbide Mononitrate [Imdur] 30 mg PO DAILY #30 tab [id number] Lisinopril [Zestril] 5 mg PO DAILY #30 tab [facility]: [id number] Primary Care Physician: Care Physician,No Primary [NON-STAFF] - Test Results: Test results from this visit will be discussed in further detail at your follow- up appointment, if applicable. When: Dr Rooney at [facility] on Tuesday07/28/2019 Please Follow Up With: Jacy Hodgson MD When: 1-2 weeks to establish PCP care Please Follow Up With: Tony Delong MD When: 2-3 weeks Proposed Discharge Date: 07/25/20
--- NOTE | 2020-07-25 15:13 | PCM.DC.SUM ---
Discharge Date and Diagnosis - Problem List Patient Problems: Active and Suspected Problems Abnormal stress test (Acute) Date of Admission: 07/24/20 Date of Discharge: 07/25/20 - Primary Discharge Diagnosis Acute Problems: Active Problems Abnormal stress test (Acute) coronary artery disease - Secondary Discharge Diagnosis Chronic Problems: Chronic Problems CAD (coronary artery disease) (Chronic) S/P PTCA (percutaneous transluminal coronary angioplasty) (Chronic) HLD (hyperlipidemia) (Chronic) HTN (hypertension) (Chronic) Hospital Course and Treatment Imaging Results: Diagnostic Data Chest X-Ray 07/24/20 19:20 IMPRESSION: Right paraspinal rounded opacity which may reflect an underlying osteophyte, consider PA and lateral images were further evaluation. Electronically Signed: Michelle Pedroza MD at 19:45 EST Tel , Service support , cardiology- Dr Delong Operations: None Procedures: Cardiac catheterization Summary of Care Provided: The patient is a 55 year old M with a past medical history of CAD s/p stents in 2006 who was admitted through the ED on 07/24/2020 on account of abnormal stress test. Patient said he had chest pain with sweatiness and dizziness around [place] time. He had also had similar symptoms back in February 2020. He had a stress test done on the day of admission at [facility]. He was later called at home with abnormal stress test results which were basal to mid lateral wall hypokinesis suggestive of ischemia in the left circumflex artery. 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 He came into the ED because he left) wanted to get his care at [facility]. Cardiology was consulted and he had cardiac cath on 07/25/2020 which showed EF of 50% with inferior basal hypokinesis and inferior apical hypokinesis as well as 80 of multivessel coronary artery disease. Plan was for patient to have CABG. Cardiothoracic surgeon at [facility] contacted and the plan was for patient to follow-up with them on outpatient basis on 07/28/2020 for open heart surgery to be scheduled later that week. Patient remained stable and was discharged home on p.o. aspirin, p.o. metoprolol as well as high intensity statin and Imdur and also lisinopril. He is to follow-up with Dr. Rooney at [facility] on 07/28/2019 at 8:30 AM. Patient seen and examined prior to discharge. He had no complaints. Review of symptoms otherwise negative. Labs and vitals reviewed. Her medications reviewed and reconciled. O/E: Vital Signs Temp Pulse Resp BP Pulse Ox 98.3 F 74 16 146/75 H 94 07/25/20 09:20 07/25/20 11:35 07/25/20 11:35 07/25/20 11:35 07/25/20 11:35 [] General: Alert, Oriented x3, Cooperative, No apparent distress HEENT: Atraumatic, PERRLA, EOMI, Normocephalic Oral: Moist Mucosa Neck: Supple Lungs: Clear to auscultation, Normal air movement Cardiovascular: Regular rate, Regular Rhythm, Normal S1, Normal S2, No murmurs Abdomen: Bowel Sounds Present, Soft, Non Tender, Non-Distended, No Hepato-splenomegaly Extremities: No edema Skin: No rashes Musculoskeletal: No Tenderness to Palpation of Joints or Extremities Lymphatic: No Cervical, Supraclavicular, or Inguinal Adenopathy Neurological: Cranial nerves II-XII grossly intact, Neuro grossly intact Psych/Mental Status: Normal Affect, Appropriate Plan is for discharge home as above Patient Problems: Active and Suspected Problems Abnormal stress test (Acute) - Physical Exam Vitals/I&O's: Vital Signs Temp Pulse Resp BP Pulse Ox 98.3 F 74 16 146/75 H 94 07/25/20 09:20 07/25/20 11:35 07/25/20 11:35 07/25/20 11:35 07/25/20 11:35 Oxygen Delivery Method Room Air Weight: 207 lb 3.752 oz Body Mass Index (BMI) 29.7 Intake and Output for Last 24 Hours 07/23/20 07/24/20 07/25/20 23:59 23:59 23:59 Intake Total 240 / 240 Balance 240 / 240 Laboratory Results 07/24/20 19:15: WBC 8.5, RBC 5.17, Hgb 16.3, Hct 48.8, MCV 94.4 H, MCH 31.5, MCHC 33.4, RDW Std Deviation 44.2 H, RDW Coeff of Gustavo 12.8, Plt Count 240, MPV 9.2, Immature Gran % (Auto) 0.400, Neut % (Auto) 65.9, Lymph % (Auto) 23.5, Reynolds % (Auto) 8.6, Eos % (Auto) 0.9, Baso % (Auto) 0.7, Absolute Neuts (auto) 5.6, Absolute Lymphs (auto) 1.99, Nucleated RBC % 0 07/24/20 19:15: PT 12.8, INR 1.0, APTT 26.7 07/24/20 19:15: Sodium 139, Potassium 4.0, Chloride 107, Carbon Dioxide 27.0, Anion Gap 5, BUN 11, Creatinine 0.79, Estim Creat Clear Calc 110.37, Est GFR (MDRD) Af Amer 132, Est GFR (MDRD) Non-Af 109, BUN/Creatinine Ratio 13.9, Glucose 114 H, Calcium 9.6, Troponin I 0.033 07/24/20 19:15: Total Bilirubin 0.50, Direct Bilirubin 0.12, AST 28, ALT 68 H, Alkaline Phosphatase 68, Total Protein 8.2, Albumin 4.5, Globulin 3.7 07/24/20 19:15: Hemoglobin A1c 5.9 H 07/25/20 00:44: Troponin I 0.032 07/25/20 03:40: Troponin I 0.016 07/25/20 06:25: Sodium 140, Potassium 4.1, Chloride 109 H, Carbon Dioxide 27.0, Anion Gap 4 L, BUN 14, Creatinine 0.68 L, Estim Creat Clear Calc 128.23, Est GFR (MDRD) Af Amer 157, Est GFR (MDRD) Non-Af 130, BUN/Creatinine Ratio 20.7 H, Glucose 118 H, Calcium 9.1, Total Bilirubin 0.70, Direct Bilirubin 0.15, AST 23, ALT 59, Alkaline Phosphatase 62, Total Protein 7.1, Albumin 3.9, Globulin 3.2, Triglycerides 191, Cholesterol 215 H, LDL Cholesterol 133 H, VLDL Cholesterol 38, HDL Cholesterol 44 07/25/20 06:25: WBC 5.8, RBC 4.85, Hgb 15.1, Hct 45.8, MCV 94.4 H, MCH 31.1, MCHC 33.0, RDW Std Deviation 44.6 H, RDW Coeff of Gustavo 12.7, Plt Count 189, MPV 9.0, Immature Gran % (Auto) 0.200, Neut % (Auto) 47.9, Lymph % (Auto) 35.6, Reynolds % (Auto) 10.7 H, Eos % (Auto) 4.6, Baso % (Auto) 1.0, Absolute Neuts (auto) 2.8, Absolute Lymphs (auto) 2.07, Nucleated RBC % 0 07/25/20 06:25: Troponin I 0.021 Current Medications Acetaminophen (Acetaminophen 325 Mg Tablet) 650 mg PO Q6H PRN PRN PRN Reason: Pain Score 1-10/Temp > 100.7 F Al Hydroxide/Mg Hydroxide (Mag Hydrox/Al Hydrox/Simeth 30 Ml Udc) 30 ml PO Q6H PRN PRN PRN Reason: Gastric Burning Albuterol Sulfate (Albuterol 2.5 Mg/3 Ml Vial.Neb.) 2.5 mg INHALATION Q2H PRN PRN PRN Reason: SOB/Wheezing Aspirin (Aspirin 81 Mg Tab.Chew) 81 mg PO DAILY@0800 [facility] Last Admin: 07/25/20 06:26 Dose: 81 mg Documented by: Atorvastatin Calcium (Atorvastatin Calcium 40 Mg Tablet) 40 mg PO DAILY@2200 [facility] Dicyclomine HCl (Dicyclomine 10 Mg Capsule) 20 mg PO Q6H PRN PRN PRN Reason: abdominal discomfort Folic Acid (Folic Acid 1 Mg Tablet) 1 mg PO DAILY@0800 [facility] Last Admin: 07/25/20 11:46 Dose: 1 mg Documented by: Gabapentin (Gabapentin 300 Mg Capsule) 300 mg PO Q8H PRN PRN PRN Reason: moderate to severe anxiety Heparin Sodium (Porcine) (Heparin Injection (Vial) 5,000 Unit/Ml Vial) 5,000 unit SC Q8 [facility] Last Admin: 07/25/20 06:25 Dose: Not Given Documented by: Hydralazine HCl (Hydralazine 20 Mg/Ml Vial) 5 mg IV Q4H PRN PRN PRN Reason: BLOOD PRESSURE Hydroxyzine Pamoate (Hydroxyzine Zenaida 25 Mg Capsule) 50 mg PO Q4H PRN PRN PRN Reason: mild anxiety Sodium Chloride () 1,000 mls @ 75 mls/hr IV .[id number] [facility] Last Admin: 07/25/20 09:43 Dose: 75 mls/hr Documented by: Isosorbide Mononitrate (Isosorbide Mononitrate 30 Mg Tablet) 30 mg PO DAILY [facility] Lisinopril (Lisinopril 5 Mg Tablet) 5 mg PO DAILY [facility] Last Admin: 07/25/20 11:46 Dose: 5 mg Documented by: Loperamide HCl (Loperamide 2 Mg Capsule) 2 mg PO Q4H PRN PRN PRN Reason: LOOSE STOOLS Metoprolol Tartrate (Metoprolol Tartrate 25 Mg Tablet) 25 mg PO DAILY [facility] Last Admin: 07/25/20 06:26 Dose: 25 mg Documented by: Nicotine (Nicotine 21 Mg Patch) 21 mg TD DAILY [facility] Last Admin: 07/25/20 09:44 Dose: Not Given Documented by: Nicotine Polacrilex (Nicotine Polacrilex 4 Mg Gum) 4 mg PO Q2H PRN PRN PRN Reason: Nicotine Craving Ondansetron HCl (Ondansetron 4 Mg/2 Ml Vial) 4 mg IV Q8H PRN PRN PRN Reason: NAUSEA/VOMITING Ondansetron HCl (Ondansetron 8 Mg Tablet) 8 mg PO Q8H PRN PRN PRN Reason: NAUSEA Sodium Chloride (0.9% Saline Lock 10 Ml Syringe) 10 - 40 ml IV UD PRN PRN Reason: SALINE FLUSH Last Admin: 07/25/20 09:43 Dose: 20 ml Documented by: Thiamine HCl ([facility] Hydrochloride 100 Mg Tablet) [facility] Admin: 07/25/20 11:46 Dose: 100 mg Documented by: Trazodone HCl (Trazodone 100 Mg Tablet) 100 mg PO QHS PRN PRN Reason: INSOMNIA Discharge Diet: Low fat/ Low Cholesterol Discharge Activity: Return to Normal Activity Weight Bearing Status: Weight bearing as tolerated Call your doctor if you observe: Fever of 101 or Higher, Shortness of breath, Fainting spells, Swelling in the ankles Home Medications: Medications to take at Discharge Metoprolol Tartrate [Lopressor (beta aj)] 25 mg PO DAILY 08/19/15 Aspirin [Aspirin, Baby] 81 mg PO DAILY@0800 07/24/20 Betamethasone/Propylene Glyc [Betamethasone Dp Aug 0.05% Oin] 15 mg TOPICAL PRN PRN 07/24/20 Prilosec 10 mg PO DAILY 07/24/20 Rosuvastatin Calcium 20 mg PO DAILY 07/24/20 Isosorbide Mononitrate [Imdur] 30 mg PO DAILY #30 tab 07/25/20 Lisinopril [Zestril] 5 mg PO DAILY #30 tab 07/25/20 Following Prescriptions Were Given to Patient: Isosorbide Mononitrate [Imdur] 30 mg PO DAILY #30 tab Transmission Status: Received by [id number] Lisinopril [Zestril] 5 mg PO DAILY #30 tab Transmission Status: Received by [id number] Primary Care Physician: Care Physician,No Primary [NON-STAFF] - When: Dr Rooney at [facility] on Tuesday07/28/2019 Please Follow Up With: Jacy Hodgson MD When: 1-2 weeks to establish PCP care Please Follow Up With: Tony Delong MD When: 2-3 weeks Patient Instructions: Understanding Coronary Artery Disease (CAD) Disposition: Home Minutes spent on discharge:: 35 Patient Condition:: Stable Medical Necessity - Tobacco Use Smoking Status: Current every day smoker Tobacco Use: Cigarettes Meaningful Use Info Meaningful Use Diagnoses (Choose all that apply): None applicable Inpatient E&M: 47920 [facility]
[2020-07-25] MEDS: Heparin Injection (Vial) 5,000 UNIT/ML VIAL 5000 UNIT SC (15:55)
== END 2020-07-25 16:26 | disposition home or self-care (01) | DRG 287 ==
LOC: ED 21:00 → PCU 21:04
PROVIDERS: Internal Medicine Cardiovascular Disease; Admitting Provider Internal Medicine; Emergency Provider Emergency Medicine; Visit Provider Student in an Organized Health Care Education/Training Program
DX: I25.10 Atherosclerotic heart disease of native coronary artery without angina pectoris (principal); I10 Essential (primary) hypertension; Z95.5 Presence of coronary angioplasty implant and graft; Z79.899 Other long term (current) drug therapy; F17.210 Nicotine dependence, cigarettes, uncomplicated; F10.10 Alcohol abuse, uncomplicated; E78.5 Hyperlipidemia, unspecified; I25.2 Old myocardial infarction
CPT/HCPCS: 36415; 71045; 80048; 80061; 80076; 83036; 84484; 85025; 85610; 85730; 93005; 93306; 93458; 99152; 99153; 99251; 99285; 99406; J7030; Q9957; Q9967; A4216; C1769; C1894; C8929; G0463

== ENCOUNTER 2021-02-05 16:02 | Emergency (ER) | payer OTHER, SELFPAY ==
[2020-07-24 21:51] VITALS: BMI 29.7
[2021-02-05 16:05] VITALS: BP 141/101; PULSE 82; RESP 16; TEMP 36.6; O2SAT 96; BMI 31.0
--- NOTE | 2021-02-05 16:17 | CT_ITS ---
STUDY: CT ABDOMEN AND PELVIS WITHOUT CONTRAST REASON FOR EXAM: Male, 55 years old. Kidney Stone RADIATION DOSAGE (If Supplied By Facility): CTDIvol = ( 13.00 ) mGy, DLP = ( 665.58 ) mGycm TECHNIQUE: Transaxial images were obtained from the dome of the diaphragm to the symphysis pubis without oral contrast, and without intravenous contrast. Sagittal and coronal images were reconstructed. Individualized dose optimization techniques were used for this CT. COMPARISON: None. FINDINGS: The visualized lung bases are unremarkable. The visualized portions of the heart are within normal limits. Fatty liver. Normal gallbladder and extrahepatic biliary system. Normal spleen. Normal pancreas. 3.2 cm slightly hypoattenuated left adrenal lesion. Normal right kidney. Normal left kidney. Normal visualized stomach. Normal small intestine. Mild diverticulosis of the colon. The appendix is visualized and appears normal. Calcified abdominal aorta. Normal inferior vena cava. Normal retroperitoneum. There is a punctate stone in the urinary bladder. Normal abdominal wall. Normal osseous structures. CT/Abdomen/Pelvis without Cont IMPRESSION: There is a punctate stone in the urinary bladder. Left adrenal nodule. Fatty liver. Colonic diverticulosis. Electronically Signed: Sheldon Choi DO at 18:15 EDT Tel [phone], Service support ,
--- NOTE | 2021-02-05 16:18 | EDS_ITS ---
HPI History of Present Illness Chief Complaint: Flank Pain Informant: patient Onset/Context/Timing Onset: Today Context: Gradual Onset Timing: Waxes and wanes Current Severity: Moderate Maximum Severity: Severe Narrative Narrative: Patient presents with right flank pain that started earlier today. Pain is been waxing and waning throughout the day. He does describe the sensation to urinate frequency. No obvious hematuria. No history of kidney stones. [facility] Medical History (Updated 02/05/21 @ 18:[address] Ivy Rapp MD) Atherosclerotic heart disease of [place] coronary artery without angina pectoris CAD (coronary artery disease) Essential hypertension GERD (gastroesophageal reflux disease) HLD (hyperlipidemia) Home Medications metoprolol tartrate 25 mg PO DAILY 08/19/15 [History Last Taken 07/24/20 16:00 25 mg] betamethasone, augmented 15 mg TOPICAL PRN PRN 07/24/20 [History Last Taken Unknown] rosuvastatin 20 mg PO DAILY 07/24/20 [History Last Taken 07/24/20 16:00 20 mg] lisinopril 5 mg PO DAILY #30 tab 07/25/20 [Rx Last Taken Unknown] aspirin 325 mg tablet 325 mg PO DAILY 08/11/20 [History Last Taken Unknown] furosemide 40 mg tablet 40 mg PO DAILY 08/11/20 [History Last Taken Unknown] omeprazole 10 mg capsule,delayed release 10 mg PO DAILY 08/11/20 [History Last Taken Unknown] Allergy/AdvReac Type Severity Reaction Status Date / Time No Known Allergies Allergy Verified 02/05/21 16:04 Surgical History History of coronary artery bypass surgery (~08/04/20) S/P PTCA (percutaneous transluminal coronary angioplasty) Social History Smoking Status: Former smoker ROS ROS ED Constitutional Constitutional ED: Denies chills or fever(s) Eyes Eyes: Denies change in vision ENT ENT ED: Denies sore throat Cardiovascular Cardiovascular: Denies chest pain Respiratory/Chest Respiratory/Chest: Denies cough or dyspnea Gastrointestinal Gastrointestinal: Reports abdominal pain; Denies diarrhea, nausea or vomiting Genitourinary Genitourinary ED: Reports urinary frequency; Denies dysuria Musculoskeletal Musculoskeletal: Reports back pain Integumentary Denies rash Neurologic Neurologic: Denies headache(s) or weakness Psychiatric Psychiatric: Denies anxiety or depression Endocrine Endocrinology: Denies polydipsia or polyuria Allergic/Immunologic Allergic/Immunologic ED: Denies urticaria EXAM Physical Exam Const Vital Signs: 02/05/21 16:05 Temperature 98 F Temperature Source Temporal Pulse Rate 82 Respiratory Rate 16 Blood Pressure 141/101 H Blood Pressure Mean 114 Pulse Ox 96 Oxygen Delivery Method Room Air Positive well nourished and well developed General Appearance ED: well developed HEENT Reports normocephalic and head/scalp atraumatic Eyes PERRL and EOMs intact bilaterally Neck supple Chest Wall inspection of chest normal and palpation of chest normal Resp normal respiratory effort and clear to auscultation bilaterally Cardio regular rate and regular rhythm GI normal to inspection, nondistended, normoactive bowel sounds and non-tender Palpation: soft Back/Spine no CVA tenderness Extremity normal to inspection Neuro oriented x3 and no sensory deficits noted Sensorium / Orientation: alert Motor Exam: strength 5/5 throughout Psych mental status grossly normal Skin no rashes or lesions noted MDM MDM MDM Narrative Medical decision making narrative: Patient was given morphine, Toradol, Zofran, IV fluids. Labs, urinalysis, CT flank obtained. Lab Data Attestation: I reviewed the patient's lab results. Labs: Laboratory Results - last 24 hr 02/05/21 02/05/21 02/05/21 16:30 16:35 16:35 WBC 9.1 RBC 4.74 Hgb 15.1 Hct 44.8 MCV 94.5 H MCH 31.9 MCHC 33.7 RDW Std Deviation 42.7 RDW Coeff of Gustavo 12.1 Plt Count 215 MPV 9.2 Immature Gran % (Auto) 0.300 Neut % (Auto) 73.6 H Lymph % (Auto) 17.6 L [place] % (Auto) 6.3 Eos % (Auto) 1.2 Baso % (Auto) 1.0 Absolute Neuts (auto) 6.7 Absolute Lymphs (auto) 1.60 Nucleated RBC % 0 Sodium Potassium Chloride Carbon Dioxide Anion Gap BUN Creatinine Estim Creat Clear Calc Est GFR (MDRD) Af Amer Est GFR (MDRD) Non-Af BUN/Creatinine Ratio Glucose Calcium Total Bilirubin 0.70 Direct Bilirubin 0.21 AST 56 H ALT 126 H Alkaline Phosphatase 76 Total Protein 7.5 Albumin 4.3 Globulin 3.2 Urine Color Yellow Urine Clarity Sl. Cloudy Urine pH 5.0 Ur Specific [place] 1.020 Urine Protein Negative Urine Glucose (UA) Normal Urine Ketones Negative Urine Occult Blood 250 H Urine Nitrite Negative Urine Bilirubin Negative Urine Urobilinogen 1 H Ur Leukocyte Esterase 25 H Urine RBC 10-25 SEEN Urine WBC 0 SEEN Ur Squamous Epith Cells 0 SEEN Urine Bacteria 1+ Urine Mucus 0 SEEN 02/05/21 16:35 WBC RBC Hgb Hct MCV MCH MCHC RDW Std Deviation RDW Coeff of Gustavo Plt Count MPV Immature Gran % (Auto) Neut % (Auto) Lymph % (Auto) [place] % (Auto) Eos % (Auto) Baso % (Auto) Absolute Neuts (auto) Absolute Lymphs (auto) Nucleated RBC % Sodium 137 Potassium 3.8 Chloride 105 Carbon Dioxide 26.0 Anion Gap 6 BUN 10 Creatinine 0.80 Estim Creat Clear Calc 108.99 Est GFR (MDRD) Af Amer 130 Est GFR (MDRD) Non-Af 107 BUN/Creatinine Ratio 12.5 Glucose 117 H Calcium 9.2 Total Bilirubin Direct Bilirubin AST ALT Alkaline Phosphatase Total Protein Albumin Globulin Urine Color Urine Clarity Urine pH Ur Specific [place] Urine Protein Urine Glucose (UA) Urine Ketones Urine Occult Blood Urine Nitrite Urine Bilirubin Urine Urobilinogen Ur Leukocyte Esterase Urine RBC Urine WBC Ur Squamous Epith Cells Urine Bacteria Urine Mucus Radiography Diagnostic Testing: Radiology Impression Abdomen/Pelvis CT 02/05/21 16:17 IMPRESSION: There is a punctate stone in the urinary bladder. Left adrenal nodule. Fatty liver. Colonic diverticulosis. Electronically Signed: Sheldon Choi DO at 18:15 EDT Tel [phone], Service support , Treatment and Re-Evaluation Comments:: Repeat evaluation patient is resting comfortably. He denies any pain at this time. CT scan reveals evidence of a punctate stone in the bladder. No other renal stones are noted. Test results discussed with patient and at bedside. He was advised he may have some pain for the next day or so secondary to some ureteral spasm, but the worst of his symptoms should be resolving. He will be referred to urology to be seen as needed only. Discharge Plan Triage Chief Complaint: Flank Pain ED Provider: Rapp,Ivy Dx/Rx/DC Orders Clinical Impression: Kidney stone Instructions: ED Kidney Stone, Passed Prescriptions: No Action metoprolol tartrate 25 MG tablet 25 mg PO DAILY RF: 0 betamethasone, augmented 15 GM ointment 15 mg TOPICAL PRN PRN (Reason: Rash) RF: 0 rosuvastatin 20 MG tablet 20 mg PO DAILY RF: 0 lisinopril 5 MG tablet 5 mg PO DAILY Qty: 30 RF: 1 aspirin 325 mg tablet 325 mg PO DAILY RF: 0 furosemide 40 mg tablet 40 mg PO DAILY RF: 0 omeprazole 10 mg capsule,delayed release(DR/EC) 10 mg PO DAILY RF: 0 Referrals: TAMERA WREN [Other] Fly Rodriguez MD [STAFF PHYSICIAN] - As Needed Disposition Disposition: Home, Self Care
[2021-02-05] MEDS: 0.9% Normal Saline 1,000 ML 250 ML IV (16:40)
[2021-02-05] MEDS: Ketorolac 30 MG/ML Syringe IV (16:41)
[2021-02-05] MEDS: Ondansetron 4 MG/2 ML Vial IV (16:41)
[2021-02-05 16:42] LABS: Mucous, Urine 0 SEEN /hpf (<or=2+); Squamous Epithelial Cells - UA 0 SEEN /hpf (0-5); White Blood Cells 0 SEEN /hpf (0-5)
[2021-02-05] MEDS: Morphine 4 MG/ML Syringe IV (16:42)
[2021-02-05 16:44] LABS: Absolute Neutrophil Count 6.7 X10^3/uL (2.0-7.7); Basophil# 0.09 X10^3/uL; Eosinophil# 0.11 X10^3/uL; Eosinophils% 1.2 % (0-5); Hematocrit 44.8 % (40-54); Hemoglobin 15.1 g/dL (13.0-16.5); Lymphocyte % 17.6 % (19-41); Mean Corp Hgb Conc 33.7 g/dL (32-36); Mean Corpuscular Hgb 31.9 pg (27.0-32.0); Mean Corpuscular Volume 94.5 fL (80-94); Mean Platelet Vol. 9.2 fl (6.2-12.0); Monocyte# 0.57 X10^3/uL; Monocyte% 6.3 % (0-10); NRBC Flagged by Analyzer 0 % (0-5); Neutrophil # 6.69 X10^3/uL (2.7-7.7); Neutrophil % 73.6 % (47-70); Platelet Count 215 K/mm3 (150-450); RBC Distribution Width CV 12.1 % (11.6-14.6); RBC Distribution Width SD 42.7 fl (35.1-43.9); Red Blood Count 4.74 M/mm3 (4.6-6.2); White Blood Count 9.1 K/mm3 (4.4-11.0)
[2021-02-05 16:48] LABS: Color, Urine Yellow (Yellow); Glucose, Dipstick Normal (Normal); Ketone-Dipstick Negative (Negative); Leukocyte Esterase-Dipstick 25 /ul (Negative); Nitrite-Dipstick Negative (Negative); Occult Blood-Urine 250 /ul (Negative); Protein-Dipstick Negative (Negative); Urine Bilirubin Dipstick Negative (Negative); Urine Clarity Sl. Cloudy (Clear); Urine Urobilinogen 1 mg/dl (Normal)
[2021-02-05 17:06] LABS: Anion Gap 6 (5-15); BUN 10 mg/dL (7-18); BUN/Creat Ratio 12.5 RATIO (10-20); Calcium,Total 9.2 mg/dL (8.5-10.1); Chloride 105 mmol/L (98-107); EST Glomerular Filtration Rate 107 mL/min (>60); Est Glom Filt Rate - Afr Amer 130 mL/min (>60); Estimated Creatinine Clearance 108.99 ml/min; Glucose 117 mg/dL (74-106); Potassium 3.8 mmol/L (3.5-5.1); Sodium Level 137 mmol/L (136-145)
[2021-02-05 17:08] LABS: AST(SGOT) 56 U/L (15-37); Alanine Aminotransfer ALT/SGPT 126 U/L (16-61); Albumin, Serum 4.3 g/dL (3.2-5.0); Alkaline Phosphatase 76 U/L (45-117); Bilirubin, Direct 0.21 mg/dL (0.00-0.30); Globulin 3.2 g/dL (2.2-4.2); Protein, Total 7.5 g/dL (6.4-8.2)
[2021-02-05 17:25] LABS: Red Blood Cells-Urine 10-25 SEEN /hpf (0-5)
[2021-02-05 17:26] LABS: Bacteria 1+ /hpf (None Seen)
== END 2021-02-05 18:32 | disposition home or self-care (01) ==
PROVIDERS: Emergency Provider Emergency Medicine
DX: N21.0 Calculus in bladder (principal); I25.10 Atherosclerotic heart disease of native coronary artery without angina pectoris; I10 Essential (primary) hypertension; E78.5 Hyperlipidemia, unspecified; K21.9 Gastro-esophageal reflux disease without esophagitis; Z79.899 Other long term (current) drug therapy; Z87.891 Personal history of nicotine dependence
CPT/HCPCS: 74176; 80048; 80076; 81001; 85025; 96361; 96374; 96375; 99283; J7030; A4216; J2405